=== PATIENT | female | born 1980 | race Caucasian/White ===

== ENCOUNTER 2019-07-05 09:37 | Outpatient (CLI) | payer OTHER, SELFPAY ==
--- NOTE | 2019-07-05 11:00 | NEURO_ITS ---
PATIENT NUMBER: [id number] DATE OF SERVICE: 07/05/2019 IMPRESSION: Patient complains of numbness of hands and nocturnal paresthesia. # Bilateral carpal tunnel syndrome, right worse than left. # Subtle right ulnar neuropathy # Needle/EMG exam not requested Nerve Conduction Studies Anti Sensory Summary Table Stim Site NR Peak (ms) P-T Amp (?V) Site1 Site2 Delta-P (ms) Dist (cm) Dashawn (m/s) Left Median Anti Sensory (2-3nd Digit) Wrist 4.8 11.0 Wrist 2-3nd Digit 4.8 14.0 29 Wrist 4.8 7.4 Wrist 2-3nd Digit 4.8 14.0 29 Right Median Anti Sensory (2-3nd Digit) Wrist 5.4 7.3 Wrist 2-3nd Digit 5.4 14.0 26 Wrist 7.7 5.5 Wrist 2-3nd Digit 5.4 14.0 26 Left Radial Anti Sensory (Base 1st Digit) Wrist 1.9 18.9 Wrist Base 1st Digit 1.9 0.0 Right Radial Anti Sensory (Base 1st Digit) Wrist 2.1 22.4 Wrist Base 1st Digit 2.1 0.0 Left Ulnar Anti Sensory (5th Digit) Wrist 2.4 72.5 Wrist 5th Digit 2.4 14.0 58 Right Ulnar Anti Sensory (5th Digit) Wrist 2.3 64.4 Wrist 5th Digit 2.3 14.0 61 Motor Summary Table Stim Site NR Onset (ms) O-P Amp (mV) Site1 Site2 Delta-0 (ms) Dist (cm) Dashawn (m/s) Left Median Motor (Abd Poll Brev) Wrist 4.3 1.7 Elbow Wrist 3.5 28.0 80 Elbow 7.8 4.1 Right Median Motor (Abd Poll Brev) Wrist 6.3 3.8 Elbow Wrist 5.0 26.0 52 Elbow 11.3 3.8 Left Ulnar Motor (Abd Dig Minimi) Wrist 2.3 8.4 A Elbow Wrist 4.4 28.0 64 A Elbow 6.7 7.1 Right Ulnar Motor (Abd Dig Minimi) Wrist 2.4 7.1 A Elbow Wrist 5.1 29.0 57 A Elbow 7.5 6.4 F Wave Studies NR F-Lat (ms) L-R F-Lat (ms) Left Median (Mrkrs) (Abd Poll Brev) 31.87 0.76 Right Median (Mrkrs) (Abd Poll Brev) 32.63 0.76 Left Ulnar (Mrkrs) (Abd Dig Min) 25.77 0.56 Right Ulnar (Mrkrs) (Abd Dig Min) 26.33 0.56 MTDD
== END 2019-07-05 09:38 | disposition home or self-care (01) ==
PROVIDERS: Visit Provider Plastic Surgery
DX: G56.03 Carpal tunnel syndrome, bilateral upper limbs (principal)
CPT/HCPCS: 95911

== ENCOUNTER 2019-10-03 06:46 | Outpatient (CLI) | payer OTHER, SELFPAY | END 2019-10-03 06:47 | disposition home or self-care (01) | PROVIDERS: PCP Physician Assistant; Visit Provider Plastic Surgery | DX: Z01.818 Encounter for other preprocedural examination (principal); Z11.59 Encounter for screening for other viral diseases | CPT/HCPCS: 87635; U0003 ==

== ENCOUNTER 2019-10-05 00:37 | Outpatient (CLI) | payer OTHER, SELFPAY ==
[2019-10-05 17:59] LABS: SARS-CoV-2 RNA PCR Negative
== END 2019-10-05 00:38 | disposition home or self-care (01) ==
LOC: ANHCOVIDDT 00:37
PROVIDERS: Visit Provider Plastic Surgery
DX: Z01.818 Encounter for other preprocedural examination (principal); Z11.59 Encounter for screening for other viral diseases
CPT/HCPCS: 87635; C9803; U0003

== ENCOUNTER 2019-10-06 07:08 | Day surgery (SDC) | payer OTHER, SELFPAY ==
[2019-09-29 17:24] VITALS: BMI 45.8
--- NOTE | 2019-10-05 06:03 | HP_ITS ---
DATE OF SERVICE: PREOPERATIVE DIAGNOSIS: Bilateral carpal tunnel syndrome. This female has been planned for staged release of the right side and then the left at later dates. These dates have been postponed due to the coronavirus. She has come in today for right carpal tunnel release under MAC anesthetic. HISTORY: She has a nerve conduction test by Dr. Lemus from June 2019, indicating bilateral carpal tunnel syndrome and subtle right ulnar nerve neuropathy to elbow. The symptoms are primarily of carpal tunnel syndrome. We discussed the treatment. She has tried splint therapy and failed and she understands that the risks of this surgery involve nerve injury, scarring, infection, hematoma, and the possible need for reoperation. She prefers to do this under MAC anesthetic. ALLERGIES: SHE HAS ALLERGIES TO AVELOX, NEXIUM, AND PENICILLINS. CURRENT MEDICATIONS: Albuterol. She has been on Adderall, but that has stopped currently. She takes butalbital, acetaminophen, caffeine for migraine headaches rarely and she takes cetirizine daily. Fluticasone as needed. Her diagnoses in her primary care's office are ADHD, anxiety, migraines, obesity, polycystic ovaries. SOCIAL HISTORY: She is . She is a former smoker of 18 years. She does not use alcohol or street drugs. PHYSICAL EXAMINATION: VITAL SIGNS: She is 5 feet 3 inches 250 pounds. HEENT: Unremarkable. CHEST: Clear to auscultation. HEART. Regular rate and rhythm by palpation. ABDOMEN: Large, soft, nontender. EXTREMITIES: Without apparent disability except for the compression neuropathy, which is evidenced by thenar tenderness bilaterally and Tinel's at both wrists. Provocative pain in both forearms and wrist compression test positive. She also has a tender 3rd A1 cony on the right. ASSESSMENT: Right carpal tunnel syndrome. PLAN: Right open carpal tunnel release under MAC anesthetic. D I MT: Ayala
--- NOTE | 2019-10-06 07:48 | WPDHPUPDATE1 ---
History and Physical Update Update Date/Time: 10/06/19 07:48 History and Physical has been reviewed, including an updated exam of the patient. There are NO changes in the patient's condition. Risks, benefits, and alternatives have been discussed and questions answered. Patient agrees to proceed with procedure.
[2019-10-06] MEDS: LACTATED RINGERS 1,000 ML 30 ML IV CONT (07:53)
[2019-10-06 07:59] VITALS: BP 130/82; PULSE 69; RESP 20; TEMP 36.3; O2SAT 99
--- NOTE | 2019-10-06 08:42 | WPDANESEPPF ---
Anes - Initial Pre Proc Eval Procedure: Operation Date: 10/06/19 09:15 Proposed Procedures p Right Open Carpal Tunnel Release - Sanjeev Youngblood MD Date/Time: 10/06/19 08:42 Surgeon: Sanjeev Youngblood MD Pre Op Diagnosis: Right Carpal Tunnel Syndrome Patient Data Age: 39 Gender: F Height: 5 ft 1 in Weight: 111.8 kg Last Vital Signs Temp 36.3 C L 10/06/19 07:59 Pulse 69 10/06/19 07:59 Resp 20 10/06/19 07:59 BP 130/82 10/06/19 07:59 Pulse Ox 99 10/06/19 07:59 Allergies Allergy/AdvReac Type Severity Reaction Status Date / Time aloe Allergy RASH, Verified 10/03/19 13:55 ITCHING moxifloxacin [From Avelox] Allergy LOSS OF Verified 10/03/19 13:55 COORDINATION Home Medications Medication Instructions Recorded Confirmed Type Vitamin C 1 tablet PO DAILY 08/03/19 10/06/19 History Vitamin D3 1 tablet PO DAILY 08/03/19 10/06/19 History lamotrigine 150 mg PO HS 08/03/19 10/06/19 History albuterol sulfate 2 puff INHALATION QID PRN 09/29/19 10/06/19 History omgddoyidk-voeglphrwcgak-xuwi 1 cap PO Q4H PRN 09/29/19 10/06/19 History fluticasone propionate [Flonase 2 spray INTRANASAL DAILY 09/29/19 10/06/19 History Allergy Relief] loratadine [Claritin] 10 mg PO HS 09/29/19 10/06/19 History Patient hx anesthesia problems: none Family hx anesthesia problems: none [facility] Past Medical History Medical History (Updated 10/06/19 @ 08:43 by Anthony Kraus MD) Morbid obesity Social History Social History Gender identity (if verbalized by the patient): Female Anes - Eval Final PreProcedure Day of Procedure 10/06/19 08:42 Patient weight: morbidly obese Heart: regular rate and rhythm Lungs: clear to auscultation Airway: Mallampati scale class II Neurological: alert and oriented Last oral intake: >/= 8 hours ASA classification: III Emergent: no Anesthetic plan: proceed Anesthesia type and monitoring: general GIVS and standard monitoring Informed Consent: The patient's anesthetic plan and its attendant risks and benefits were discussed with the patient/family/POA. Questions were solicited and answers provided to the satisfaction of the patient/family/POA.
[2019-10-06] MEDS: LIDO 1%/EPINEPHRINE 1:100,000 20 ML VIAL 3 ML INFILTRATE (09:46)
[2019-10-06] MEDS: BACITRACIN OINTMENT 15 GM TUBE 1 APPLIC TOPICAL (09:46)
--- NOTE | 2019-10-06 10:03 | PM.OP ---
Procedure Note - Brief Procedure Note - Brief Date of procedure: 10/06/19 Pre-op diagnosis: Right Carpal Tunnel Syndrome Post-op diagnosis: same Procedure performed: R OCTR Anesthesia: MAC Surgeon: Sanjeev Youngblood MD Estimated blood loss (mL): 0 Drains: No Packing: No Pathology: none sent Complications: No immediate complications Condition: stable Disposition: same day
[2019-10-06 10:17] VITALS: BP 110/61; PULSE 68; RESP 14; O2SAT 100
--- NOTE | 2019-10-06 10:31 | PM.PROC ---
Procedure Note - Detailed Date of procedure: 10/06/19 Pre-op diagnosis: Right Carpal Tunnel Syndrome Post-op diagnosis: same Procedure performed: Right open carpal tunnel release Implants: the appropriate site was marked on the patient in the holding area. She has rolled to the operating room and placed supine on the operating table. A time-out was held and confirmed. She was given IV sedation and the extremity was prepped and draped in usual fashion. The operative site was remarked in locally infiltrated with 1% lidocaine with epinephrine. The tourniquet was inflated to 250 mmHg. The incision was made as marked on the palm. Blunt dissection through the subcutaneous tissue to the palmar fascia was performed. The fascia and the transverse carpal ligament were incised with a 15. Blade. Under 3 point retraction the ligament was divided distally and proximally to completely release it. No unusual anatomy was noted. The usual bandage was applied and the tourniquet released. She is discharge instructions in wound care and follow-up. She has a prescription for hydrocodone . Surgeon: Sanjeev Youngblood MD
[2019-10-06 10:45] VITALS: BP 129/75; PULSE 60; RESP 16
[2019-10-06 11:35] VITALS: BP 134/65; PULSE 56; RESP 16
--- NOTE | 2019-10-06 11:36 | SUR.PHASEII ---
1120 PT C/O MIGRAINE. DR. EMILY ZAPATA'D FOR PATIENT TO TAKE HOME MIGRAINE MED ([id number] 1 TAB).
--- NOTE | 2019-10-06 11:37 | SUR.PHASEII ---
1140 PT STATES HEADACHE IMPROVING.
--- NOTE | 2019-10-06 11:38 | SUR.PHASEII ---
1150 STEP-FATHER CALLED TO CUSTODIAL SERVICES MANAGER.
[2019-10-06 11:41] VITALS: BP 126/77; PULSE 65; RESP 16
== END 2019-10-06 11:52 | disposition home or self-care (01) ==
PROVIDERS: Visit Provider Plastic Surgery
PROC: (CPT 64721; principal; 2019-10-06 09:15)
DX: G56.01 Carpal tunnel syndrome, right upper limb (principal); E66.01 Morbid (severe) obesity due to excess calories; Z68.42 Body mass index [BMI] 45.0-49.9, adult
CPT/HCPCS: 64721; A9270; J2250; J2405; J2704; J3010; J7120

== ENCOUNTER 2019-10-11 08:29 | Outpatient (CLI) | payer OTHER, SELFPAY ==
[2019-10-11 17:31] LABS: SARS-CoV-2 RNA PCR Negative
== END 2019-10-11 08:30 | disposition home or self-care (01) ==
LOC: ANHCOVIDDT 08:29
PROVIDERS: Visit Provider Plastic Surgery
DX: Z01.818 Encounter for other preprocedural examination (principal); Z11.59 Encounter for screening for other viral diseases
CPT/HCPCS: 87635; C9803; U0003

== ENCOUNTER 2019-10-12 01:32 | Day surgery (SDC) | payer OTHER, SELFPAY ==
--- NOTE | 2019-10-12 06:21 | HP_ITS ---
DATE OF SERVICE: 10/12/2019 PREOPERATIVE DIAGNOSIS: Left carpal tunnel syndrome. HISTORY: The patient is 39. She presented in late April with complaints of numbness and weakness in her hands. Apparently, she had gotten some splints and had tried them for a while. She said they could be helpful, but they did not cure her. She had a nerve conduction test by Dr. Lemus from 07/05/2019 indicating bilateral carpal tunnel syndrome, right worse than left, and subtle right ulnar neuropathy. Her worst complaints were on the right, and she was successfully operated on that side.. She understands there are risks to nerves, there is risk of infection, seroma, hematoma, scarring. She wishes to proceed with release on the left wrist. PAST MEDICAL HISTORY: ALLERGIES: SHE HAS AN ALLERGY TO ALOE, SHE SAYS AND ALSO AVELOX, NEXIUM, AND PENICILLINS. ACTUALLY SHE GETS YEAST INFECTIONS TO ALL OF THE PENICILLINS. CURRENT MEDICATIONS: She says her current medications include albuterol and cetirizine. She has, in the past, taken Adderall, but that has been stopped, and she will occasionally take a combination of butalbital, acetaminophen, and caffeine for migraines. SOCIAL HISTORY: She is a nonsmoker. She lives in [place]. Does not list employment. FAMILY HISTORY: Noncontributory. PHYSICAL EXAMINATION: GENERAL: She is alert and cooperative. She is 5 feet 3 inches and weighs 249 pounds. HEENT: Unremarkable. CHEST: Clear to auscultation. HEART: Regular rate and rhythm by palpation. ABDOMEN: Soft, nontender. EXTREMITIES: Exam reveals thenar tenderness in both hands. Tinel's at both wrists. Provocative pain in both forearms. Wrist compression test was positive bilaterally. She has some tenderness at the right 3rd A1 cony. She had no findings consistent with cubital tunnel syndrome though she has some general complaints related to those specific areas. ASSESSMENT: Bilateral carpal tunnel syndrome and possible right ulnar neuropathy. PLAN: Left open carpal tunnel release. D I MT: Ayala SMITH
[2019-10-12] MEDS: LACTATED RINGERS 1,000 ML 30 ML IV CONT (06:45)
[2019-10-12 07:08] VITALS: BP 130/72; PULSE 65; RESP 16; TEMP 37.1; O2SAT 98
--- NOTE | 2019-10-12 07:15 | WPDANESEFPP ---
Anes - Eval Final PreProcedure Day of Procedure 10/12/19 07:15 Patient weight: morbidly obese Heart: regular rate and rhythm Lungs: clear to auscultation Airway: Mallampati scale class II Neurological: alert and oriented Last oral intake: >/= 8 hours ASA classification: III Emergent: no Anesthetic plan: proceed Anesthesia type and monitoring: general GIVS and standard monitoring Informed Consent: The patient's anesthetic plan and its attendant risks and benefits were discussed with the patient/family/POA. Questions were solicited and answers provided to the satisfaction of the patient/family/POA.
--- NOTE | 2019-10-12 07:23 | WPDHPUPDATE1 ---
History and Physical Update Update Date/Time: 10/12/19 07:23 History and Physical has been reviewed, including an updated exam of the patient. There are NO changes in the patient's condition. Risks, benefits, and alternatives have been discussed and questions answered. Patient agrees to proceed with procedure.
--- NOTE | 2019-10-12 07:54 | PM.OP ---
Procedure Note - Brief Procedure Note - Brief Date of procedure: 10/12/19 Pre-op diagnosis: Left Carpal Tunnel Syndrome Post-op diagnosis: same Procedure performed: L OCTR Anesthesia: MAC Surgeon: Sanjeev Youngblood MD Estimated blood loss (mL): 0 Tourniquet time (min): 6 Drains: No Packing: No Pathology: none sent Complications: No immediate complications Condition: stable Disposition: same day
[2019-10-12] MEDS: BACITRACIN OINTMENT 15 GM TUBE 1 APPLIC TOPICAL (07:57)
[2019-10-12 07:59] VITALS: BP 117/57; PULSE 70; RESP 16; O2SAT 96
--- NOTE | 2019-10-12 08:07 | P.OP_ITS ---
Procedure Note - Detailed Date of procedure: 10/12/19 Pre-op diagnosis: Left Carpal Tunnel Syndrome Post-op diagnosis: same (Left carpal tunnel syndrome) Procedure performed: Left open carpal tunnel release Description of procedure: The left carpal tunnel was marked on the patient in preop. She was taken to the operating room and placed supine on the operating table. A time-out was held and confirmed. She was given IV sedation as the ex tremity was prepped and draped in the usual fashion. The site was locally infiltrated with 1% lidocaine with epinephrine, 6 milliliters. The tourniquet was inflated to 250 mmHg. The incision was made with a #15 blade. This was carried through this skin and subcutaneous tissue. Blunt dissection revealed the palmar fascia. This and the carpal ligament were incised with a 15 blade. Under 3 point retraction the ligament was visualized and divided distally and proximally to completely release it. No unusual anatomy was noted. The skin was closed with interrupted 5 0 nylon suture. The usual bandage was applied and the tourniquet released. She is discharged with a prescription for hydrocodone 5/325 number 10 and instructions in wound care and follow-up. Surgeon: Sanjeev Youngblood MD
[2019-10-12 08:30] VITALS: BP 117/68; PULSE 85; RESP 20
[2019-10-12 09:00] VITALS: BP 115/71; PULSE 68; RESP 12
== END 2019-10-12 09:13 | disposition home or self-care (01) ==
PROVIDERS: Visit Provider Plastic Surgery
PROC: (CPT 64721; principal; 2019-10-12 07:30)
DX: G56.02 Carpal tunnel syndrome, left upper limb (principal); E66.01 Morbid (severe) obesity due to excess calories; Z68.42 Body mass index [BMI] 45.0-49.9, adult
CPT/HCPCS: 64721; A9270; J2250; J2405; J2704; J3010; J7120

== ENCOUNTER 2019-12-23 08:00 | Outpatient (RCR) | payer OTHER, SELFPAY ==
--- NOTE | 2019-11-30 14:22 | OTOPEVAL ---
OCCUPATIONAL THERAPY EVALUATION 11/30/2019 Thank you for referring Jackelyn Dillon to [facility]. Skilled OT indicated 2x/week for 4 weeks for deficits described below. Please review, sign, date and return this plan of care ANDRE. I agree with and certify that the following plan of care is medically necessary. Referring Physician Date Referring Provider: Sanjeev Youngblood MD *OT Outpatient Evaluation Therapy Assessment Status Assessment Status Assessment Status Evaluation Outpatient Past Medical History Neurological History Hx Migraine Yes Cardiovascular History Hx Cardiac Disorders No Significant History Respiratory History Hx Bronchitis Yes Hx Other Respiratory Disorders Yes: INHALED PROPANE ACCIDENTALLY RESULTING IN LUNG DAMAGE Gastrointestinal History Hx Gastrointestinal Disorders No Significant History Genitourinary History Hx Genitourinary Disorders No Significant History Musculoskeletal History Hx Other Musculoskeletal Disorders Yes: BILATERAL CARPAL TUNNEL, PLANTAR FACITIS Hematological History Hx Hematological Disorders No Significant History Endocrine History Hx Endocrine Disorders No Significant History HEENT History Hx Sinus Problems Yes: ALLERGIES Integumentary History Hx Other Skin Disorders Yes: GRANULOMA REMOVED Reproductive History Hx Reproductive Disorders No Significant History Psychosocial History Hx Bipolar Disorder Yes Hx Depression Yes Hx Other Psychiatric Disorders Yes: PRONE TO PANIC ATTACKS Pain History History of Any Previous or Ongoing No Significant History Instance of Pain Anesthesia History Hx Anesthesia Reactions No Significant History Evaluation Information Problem Diagnosis s/p bilateral carpal tunnel release Onset (R) 10/05/19, (L) 10/12/19 Subjective Information Patient reports functional Query Text:As Reported By Patient/ decline in use of BUEs s/p CTR Family due to pain and weakness. 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 Overall, difficulties with pinching and gripping as well as general muscle fatigue. Prior Level of Function Activity Level (Last 3 Months) Occupation Not working 2/2 COVID Hand Dominance Right Cooking Yes Cleaning Yes Laundry Yes Shopping
--- NOTE | 2019-12-05 08:30 | PCOTNOTE ---
Pt has 8:00am 12/05/2019 appointment scheduled for OT treatment, pt did not show and did not call for scheduled appointment this AM.
--- NOTE | 2019-12-30 16:04 | OTOPEVAL ---
OCCUPATIONAL THERAPY DISCHARGE NOTE 12/30/2019 Thank you for referring Jackelyn Dillon to [facility].? Jackelyn attended her evaluation on 11/30/19 and only 3 subsequent visits. She cancelled multiple appointments due to being unable to attend and cancelled her re-evaluation today. Therapy reached out to the patient and she decided that due to her schedule and other issues she is unable to attend further therapy at this time. She has been instructed in scar management, stretching, and strengthening for her stiffness, weakness, and pain following her carpal tunnel release surgery. Plan to discharge today with goals not met due to being unable to complete a formal reassessment. Please review, sign, date and return this D/C Note ANDRE. I agree with and certify that the following plan of care is medically necessary. Referring Physician Date Referring Provider: Sanjeev Youngblood MD
== END 2020-01-02 14:33 | disposition home or self-care (01) ==
LOC: ANHOT 08:00
PROVIDERS: Visit Provider Plastic Surgery
DX: Z48.89 Encounter for other specified surgical aftercare (principal); M62.81 Muscle weakness (generalized)
CPT/HCPCS: 97018; 97035; 97110; 97140; 97165